=== PATIENT | female | born 1935 | race Caucasian/White ===

== ENCOUNTER → 2018-08-19 | Emergency (ER) | payer OTHER ==
[~2018-08-19] VITALS: Ht 167.6 cm; Wt 79.4 kg
[~2018-08-19] MED LIST: ASPIR 8181 MG; DESYREL; DITROPAN5 MG; HYDROCHLOROTH12.5 M1; SINGULAIR10 MG
== END | disposition home or self-care (01) ==
LOC: ER 12:21
DX: S52.591A Other fractures of lower end of right radius, initial encounter for closed fracture (principal); W18.39XA Other fall on same level, initial encounter; Y93.89 Activity, other specified; Y92.89 Other specified places as the place of occurrence of the external cause; Y99.8 Other external cause status